=== PATIENT | female | born 1950 | race Caucasian/White ===

== ENCOUNTER 2017-09-16 03:36 | Emergency (ER) | payer MEDICARE ==
[2017-09-16] MEDS ORDERED: Magnesium Sulfate 1 GM IV* 1 GM/100 ML BAG IV ONE (03:57)
[2017-09-16] MEDS ORDERED: Levofloxacin TAB* 250 MG PO ONE (03:57)
[2017-09-16] MEDS ORDERED: Albuterol/Ipratropium NEB.SOL* Albuterol 2.5 MG/Ipratropium 0.5 MG 3 ML INH ONE ×2 (03:57→04:44)
[2017-09-16] MEDS ORDERED: predniSONE TAB* 20 MG PO ONE (03:57)
[2017-09-16] MEDS ORDERED: Albuterol/Ipratropium NEB.SOL* Albuterol 2.5 MG/Ipratropium 0.5 MG 3 ML ONE (04:45)
--- NOTE | 2017-09-16 05:43 | ED ---
Rosa Walker Emily, scribed for Ruslan Hdz MD on 09/16/17 at 0357 . Respiratory - HPI Summary HPI Summary: This patient is a 67 year old F BIBA to [facility] accompanied by family with a chief complaint of SOB that worsened [employer] SALES [employer]. The patient rates the pain 3/10 in severity. Symptoms aggravated by nothing. Symptoms alleviated by nothing. Patient reports wheezing. Patient denies CP and fever. Pt reports that she has an appointment tomorrow with a form worker. - History of Current Complaint Stated Complaint: SOB Time Seen by Provider: 09/16/17 03:37 Hx Obtained From: Patient Onset/Duration: Sudden Onset, Still Present Initial Severity: Mild Current Severity: Mild Pain Intensity: 3 Character: Wheezing Aggravating Factor(s): Nothing Alleviating Factor(s): Nothing - Allergy/Home Medications Allergies/Adverse Reactions: Allergies Allergy/AdvReac Type Severity Reaction Status Date / Time No Known Allergies Allergy Verified 09/16/17 04:14 Home Medications: Home Medications Losartan/Hydrochlorothiazide [Losartan-Hctz 50-12.5 mg Tab] 1 tab PO DAILY 09/16 [History Confirmed 09/16/17] PMH/Surg Hx/FS Hx/Imm Hx Previously Healthy: No Cardiovascular History: Reports: Hx Hypertension Opthamlomology History: Denies: Hx Legally Blind - Surgical History Surgery Procedure, Year, and Place: sinus surgery Infectious Disease History: No Infectious Disease History: Denies: Traveled Outside the [place] in Last 30 Days - Family History Known Family History: Positive: Other - CHF - Social History Occupation: Employed Full-time Lives: With Family Alcohol Use: None Substance Use Type: Reports: None Smoking Status (MU): Never Smoked Tobacco Review of Systems Negative: Fever Negative: Chest Pain Positive: Shortness Of Breath, Other - Positive wheezing All Other Systems Reviewed And Are Negative: Yes Physical Exam - Summary Physical Exam Summary: Appearance: Well appearing, no pain distress Skin: warm, dry, reflects adequate perfusion Head/face: normal Eyes: EOMI, ROSHNI ENT: normal Neck: supple, non-tender Respiratory: breath sounds present, a lot of expiratory wheezes Cardiovascular: RRR, pulses symmetrical Abdomen: non-tender, soft Bowel Sounds: present Musculoskeletal: normal, strength/ROM intact Neuro: normal, sensory motor intact, A&Ox3 Triage Information Reviewed: Yes Vital Signs On Initial Exam: Initial Vitals Temp Pulse Resp BP Pulse Ox 98.1 F 83 22 127/101 92 09/16/17 03:48 09/16/17 03:48 09/16/17 03:48 09/16/17 03:48 09/16/17 03:48 Vital Signs Reviewed: Yes Diagnostics - Vital Signs Vital Signs Temp Pulse Resp BP Pulse Ox 09/16/17 03:48 98.1 F 83 22 127/101 92 - Laboratory Lab Statement: Any lab studies that have been ordered have been reviewed, and results considered in the medical decision making process. Disposition - Course Course Of Treatment: Patient with chronic bronchitis now exacerbated. Diffuse expiratory wheezing. Remote history of smoking. Started antibiotics, steroids and gave multiple breathing treatments. I also gave a dose of IV magnesium. This combination greatly improved the patient's symptoms and she was stable for discharge home. Steroids, antibiotics and albuterol as needed will be given at home. She does have a follow-up appointment with pulmonology this week. - Differential Dx - Cardiopulmonary Differential Diagnoses - Cardiopulmonary: CHF, Exacerbation Of COPD, Lower Resp Infection - Diagnoses Provider Diagnoses: Acute exacerbation of chronic obstructive pulmonary disease (COPD) Discharge - Sign-Out/Discharge Documenting (check all that apply): Discharge/Admit/Transfer - Discharge Plan Condition: Improved Disposition: HOME Prescriptions: Levofloxacin TAB* [Levaquin TAB*] 750 mg PO DAILY #6 tab predniSONE TAB* [Deltasone TAB*] 50 mg PO DAILY #5 tab Patient Education Materials: COPD (Chronic Obstructive Pulmonary Disease) (ED) Referrals: Non Staff,Doctor [Primary Care Provider] - Additional Instructions: See your form worker as scheduled this week. Call your family doctor for an appointment first thing Sunday. Humidifier while sleeping. Abuse are all every 4 hours as needed till well. Continue steroids, antibiotics. Return with difficulty breathing, worse, new symptoms or other concerns. - Billing Disposition and Condition Condition: IMPROVED Disposition: HOME The documentation as recorded by the Rosa diggs Emily accurately reflects the service I personally performed and the decisions made by me, Ruslan Hdz MD.
[2017-09-16 05:46] VITALS: BP 138/77
== END 2017-09-16 05:45 | disposition home or self-care (01) ==
LOC: ED 03:36
DX: J44.9 Chronic obstructive pulmonary disease, unspecified (principal); R06.02 Shortness of breath; R06.2 Wheezing; Z86.79 Personal history of other diseases of the circulatory system
CPT/HCPCS: 99283; A9270-GY; J3475; J7512